=== PATIENT | male | born 1980 | race Caucasian/White ===

== ENCOUNTER → 2019-08-30 | Outpatient (CLI) | payer OTHER ==
[~2019-08-30] MED LIST: ISOVUE-370 76% 100ML VIAL (Q9967) As Ordered ONE
--- NOTE | 2019-08-30 17:09 | REPVR ---
PROCEDURE INFORMATION: Exam: CT Chest With Contrast Exam date and time: 08/30/2019 4:50 PM Age: 38 years old Clinical indication: Abnormal findings; Lung mass or nodule; Multiple nodules; Additional info: Abn cxr, inc markings, multiple pulm nodules TECHNIQUE: Imaging protocol: Computed tomography of the chest with intravenous contrast. 3D rendering: MIP and/or 3D reconstructed images were created by the technologist. Radiation optimization: All CT scans at this facility use at least one of these dose optimization techniques: automated exposure control; mA and/or kV adjustment per patient size (includes targeted exams where dose is matched to clinical indication); or iterative reconstruction. Contrast material: ISOVUE 370; Contrast volume: 75 ml; Contrast route: IV; COMPARISON: CR CHEST, PA/LAT OUTSIDE PRIOR 08/29/2019 7:58 AM FINDINGS: Lungs: Multiple calcified granulomas left lower lobe. Lungs otherwise clear. Pleural space: Unremarkable. No pneumothorax. No pleural effusion. Heart: Unremarkable. No cardiomegaly. No pericardial effusion. Aorta: Unremarkable. No aortic aneurysm. Lymph nodes: Calcified left hilar lymph nodes. Spleen: The spleen demonstrates punctate calcifications, consistent with remote granulomatous organism exposure. Bones/joints: Unremarkable. No acute fracture. Soft tissues: Unremarkable. IMPRESSION: 1. Findings consistent with remote intrathoracic and intra-abdominal granulomatous infection. 2. No acute pulmonary parenchymal abnormalities. Electronically signed by: Derik Fall On 08/30/2019 17:10:46 PM
== END ==
LOC: M RAD 16:33
PROVIDERS: ATTEND Physician Assistant
DX: J98.4 Other disorders of lung (principal); R91.8 Other nonspecific abnormal finding of lung field
CPT/HCPCS: 71260; Q9967

== ENCOUNTER 2020-04-27 11:58 | Emergency (ER) | payer OTHER ==
[~2020-04-27] VITALS: Ht 185.4 cm; Wt 87.4 kg
--- NOTE | 2020-04-27 13:00 | REPVR ---
PROCEDURE INFORMATION: Exam: CT Head Without Contrast Exam date and time: 04/27/2020 12:35 PM Age: 39 years old Clinical indication: Injury or trauma; Fall; Initial encounter; Blunt trauma (contusions or hematomas); Additional info: Fall backwards, head injury w/ loc TECHNIQUE: Imaging protocol: Computed tomography of the head without contrast. Radiation optimization: All CT scans at this facility use at least one of these dose optimization techniques: automated exposure control; mA and/or kV adjustment per patient size (includes targeted exams where dose is matched to clinical indication); or iterative reconstruction. COMPARISON: No relevant prior studies available. FINDINGS: Brain: Normal. No hemorrhage. Unremarkable white matter. No mass effect. Cerebral ventricles: No ventriculomegaly. Bones/joints: Unremarkable. No acute fracture. Paranasal sinuses: There is mild ethmoid mucosal thickening. Mastoid air cells: Visualized mastoid air cells are well aerated. Soft tissues: Unremarkable. IMPRESSION: No acute hemorrhage or calvarial fracture. Electronically signed by: Bettie Leal On 04/27/2020 12:59:36 PM
--- NOTE | 2020-04-27 13:01 | REPVR ---
PROCEDURE INFORMATION: Exam: CT Cervical Spine Without Contrast Exam date and time: 04/27/2020 12:35 PM Age: 39 years old Clinical indication: Injury or trauma; Fall; Initial encounter; Blunt trauma; Additional info: Fall backwards, head injury w/ loc TECHNIQUE: Imaging protocol: Computed tomography images of the cervical spine without contrast. Radiation optimization: All CT scans at this facility use at least one of these dose optimization techniques: automated exposure control; mA and/or kV adjustment per patient size (includes targeted exams where dose is matched to clinical indication); or iterative reconstruction. COMPARISON: No relevant prior studies available. FINDINGS: Vertebrae: No acute fracture. Normal alignment. Discs/Spinal canal/Neural foramina: No significant disc protrusion. No severe spinal canal stenosis. No significant neural foraminal narrowing. Soft tissues: Unremarkable. Lungs: Lung apices are normal. IMPRESSION: No acute findings. Electronically signed by: Bettie Leal On 04/27/2020 13:00:45 PM
[2020-04-27] MEDS ORDERED: ACETAMINOPHEN 500 MG TAB PO ONE (14:15)
--- NOTE | 2020-04-27 14:21 | REPVR ---
PROCEDURE INFORMATION: Exam: XR Right Shoulder Exam date and time: 04/27/2020 2:14 PM Age: 39 years old Clinical indication: Pain and injury or trauma; Fall; Initial encounter; Sprain or strain; Shoulder; Right; Injury details: PT states fell out of tree; Additional info: R shoulder pain S/P fall TECHNIQUE: Imaging protocol: XR Right shoulder. Views: 2 or more views. COMPARISON: No relevant prior studies available. FINDINGS: Bones/joints: Normal. Soft tissues: Normal. IMPRESSION: No acute findings. Electronically signed by: Bettie Leal On 04/27/2020 14:20:56 PM
[2020-04-27 14:48] LABS: BASO # 0.1 10^3/uL (0.0-0.2); BASO % 1.5 % (0.0-1.0); EOS # 0.2 10^3/uL (0.0-0.5); EOS % 3.4 % (0.0-3.0); HEMATOCRIT 46.7 % (42.0-52.0); HEMOGLOBIN 15.4 g/dl (13.5-17.5); MEAN CORPUSCULAR HEMOGLOBIN 29.3 pg (27.0-33.0); MONO # 0.5 10^3/uL (0.0-0.8); NEUTROPHILS # 3.1 10^3/uL (1.5-8.5); NEUTROPHILS % 52.9 % (36.0-66.0); PLATELET COUNT, AUTOMATED 278 10^3/uL (150-450); RED BLOOD COUNT 5.25 10^6/uL (4.30-6.10); WHITE BLOOD COUNT 5.9 10^3/uL (4.0-10.0)
[2020-04-27] MEDS ORDERED: ISOVUE-370 76% 100ML VIAL As Ordered ONE (14:57)
[2020-04-27 15:17] LABS: ALBUMIN 4.2 GM/DL (3.2-5.2); BILIRUBIN,DIRECT 0.2 MG/DL (0.0-0.2); BILIRUBIN,TOTAL 0.8 MG/DL (0.2-1.0); TOTAL PROTEIN 7.6 GM/DL (6.4-8.2)
--- NOTE | 2020-04-27 15:40 | REPVR ---
PROCEDURE INFORMATION: Exam: CT Abdomen And Pelvis With Contrast Exam date and time: 04/27/2020 3:01 PM Age: 39 years old Clinical indication: Injury or trauma; Fall; Blunt; Generalized; Additional info: Right flank pain S/P fall, R/O kidney/intra-abd injury TECHNIQUE: Imaging protocol: Computed tomography of the abdomen and pelvis with intravenous contrast. Radiation optimization: All CT scans at this facility use at least one of these dose optimization techniques: automated exposure control; mA and/or kV adjustment per patient size (includes targeted exams where dose is matched to clinical indication); or iterative reconstruction. Contrast material: ISOVUE 370; Contrast volume: 100 ml; Contrast route: INTRAVENOUS (IV); COMPARISON: No relevant prior studies available. FINDINGS: Lungs: There are densely calcified granulomata at the left lung base. No consolidation. Liver: There is mild hepatic steatosis. No focal hepatic lesion. No laceration. Gallbladder and bile ducts: The gallbladder is normal.No calcified calculi. Normal bile ducts. Pancreas: The pancreas is normal. Spleen: There are multiple calcified granulomata within the spleen. The spleen is otherwise normal. No laceration. Adrenals: There are right adrenal calcifications. No mass. No hemorrhage. The left adrenal is normal. Kidneys and ureters: The kidneys are normal.No hydronephrosis. No laceration. No perinephric hematoma. Stomach and bowel: Unremarkable. No obstruction. No mucosal thickening. Appendix: The appendix is well visualized and is normal. Intraperitoneal space: There is no free fluid or fluid collection. There is no free air. Vasculature: No evidence of abdominal aortic aneurysm, dissection or vascular injury. There is a retroaortic left renal vein. Lymph nodes: Unremarkable. No enlarged lymph nodes. Urinary bladder: The bladder is normal with no evidence of calculi. Reproductive: Unremarkable as visualized. Bones/joints: Unremarkable. No acute fracture. Soft tissues: Unremarkable. IMPRESSION: No abdominal or pelvic injury. Electronically signed by: Howie Villegas On 04/27/2020 15:40:09 PM
[2020-04-27 16:01] VITALS: BP 131/71
== END 2020-04-27 16:03 | disposition home or self-care (01) ==
LOC: M ED 11:58
DX: S06.9X1A Unspecified intracranial injury with loss of consciousness of 30 minutes or less, initial encounter (principal); S40.011A Contusion of right shoulder, initial encounter; S30.1XXA Contusion of abdominal wall, initial encounter; S43.401A Unspecified sprain of right shoulder joint, initial encounter; M54.2 Cervicalgia; W01.198A Fall on same level from slipping, tripping and stumbling with subsequent striking against other object, initial encounter; Y92.828 Other wilderness area as the place of occurrence of the external cause
CPT/HCPCS: 36415; 70450; 72125; 73030; 74177; 80047; 80076; 81001; 83690; 85025; 99284; Q9967

== ENCOUNTER → 2020-11-23 | Outpatient (CLI) | payer OTHER ==
--- NOTE | 2020-11-23 10:02 | REP ---
INDICATION: OTHER NON SPECIFIC ABNORMAL FINDING OF LUNG FIELD. Follow-up scattered pulmonary nodules. COMPARISON: Prior CT study of the chest 30 August 2019.. TECHNIQUE: Helical scanning is acquired. 3 mm axial images are generated. Coronal and sagittal MPR and coronal MIP images are generated. FINDINGS: Digital preliminary stove mounter radiograph is unremarkable. On axial images there are multiple benign densely calcified granulomatous nodules in the left lower lobe posterior and basal in distribution unchanged from the August 30, 2019 study. There is a noncalcified 2 mm pulmonary nodule in the left lower lobe on page [id number] in series 201 of today's study which is also unchanged from the study done August 30, 2019. No other significant pulmonary nodule is appreciated. There are 2 stable areas of focal pleural plaquing in the right posterior chest adjacent to the right lower lobe. These are unchanged as well. the lung vu are otherwise clear. There is no evidence of pleural or pericardial effusion. No hilar or mediastinal mass is seen. There are granulomatous john calcifications in the left hilus and scattered calcifications are seen in the spleen. There are some calcifications in the right adrenal gland. These findings are all unchanged. IMPRESSION: Old granulomatous changes. No active disease. <Electronically signed by Star Payne > 11/23/20 [id number]
== END ==
LOC: M RAD 08:02
PROVIDERS: ATTEND Nurse Practitioner
DX: R91.8 Other nonspecific abnormal finding of lung field (principal)

== ENCOUNTER → 2021-11-04 | Outpatient (REF) | LOC: M PLAIMG 08:59 | PROVIDERS: ATTEND Internal Medicine | DX: M25.571 Pain in right ankle and joints of right foot (principal); R07.9 Chest pain, unspecified ==